=== PATIENT | female | born 1970 | race Caucasian/White ===

== ENCOUNTER → 2020-05-31 | Outpatient (CLI) | payer BC ==
--- NOTE | 2020-05-31 13:41 | US ---
EXAMINATION TYPE: US pelvis complete trans vag DATE OF EXAM: 05/31/2020 COMPARISON: US 01/17/12; CT 12/18/11 CLINICAL HISTORY: R10.9 Abdominal Pain, Unspecified, R31.9 Hematuria. Intermittent pelvic and back pa in x 3 mths; Hx of tubal ligation TECHNIQUE: Transvaginal (TV) and Transabdominal (TA) . Transabdominal sonographic images of the pel vis were acquired. Transvaginal sonographic images were medically necessary to better assess the fol lowing anatomy: Ovaries Date of LMP: 05/24/20 EXAM MEASUREMENTS: Uterus: 7.8 x 4.1 x 4.5 cm Endometrial Stripe: 0.8 cm Right Ovary: 2.3 x 1.6 x 3.1 cm Left Ovary: 2.8 x 2.0 x 1.7 cm 1. Uterus: Fibroid within the posterior body measuring 1.4 x 1.4 x 1.4 cm . 2. Endometrium: wnl 3. Right Ovary: wnl 4. Left Ovary: wnl 5. Bilateral Adnexa: wnl 6. Posterior cul-de-sac: wnl IMPRESSION: 1.4 cm fibroid within the posterior uterine body. 1. No evidence of ovarian or adnexal mass. 2. No free fluid.
--- NOTE | 2020-05-31 14:00 | US ---
EXAMINATION TYPE: US abdomen complete DATE OF EXAM: 05/31/2020 COMPARISON: US 10/14/12; CT abdomen pelvis 12/18/11 CLINICAL HISTORY: R10.9 Abdominal Pain, Unspecified, R31.9 Hematuria. Increased urinary frequency; in termittent pelvic and back pain x 3 mths EXAM MEASUREMENTS: Liver Length: 18.1 cm, not significantly changed from 2012 CT comparison Gallbladder Wall: 0.2 cm CBD: 0.5 cm Spleen: 8.0 cm Right Kidney: 9.6 x 4.2 x 5.1 cm Left Kidney: 9.6 x 3.8 x 4.1 cm Pancreas: Normal where visualized Liver: Normal echotexture Gallbladder: Normal Low Pressure Firer reports negative sonographic Pedroza sign CBD: Normal Spleen: Normal Right Kidney: Normal Left Kidney: Normal Upper IVC: Normal Abd Aorta: Nonaneurysmal IMPRESSION: No hydronephrosis. No acute findings.
== END | disposition home or self-care (01) ==
LOC: RADUSWWP 06:59
PROVIDERS: ATTEND Family Medicine
DX: D25.9 Leiomyoma of uterus, unspecified (principal); R31.9 Hematuria, unspecified; R10.31 Right lower quadrant pain
CPT/HCPCS: 76700; 76830; 76856

== ENCOUNTER 2020-07-13 09:56 | Day surgery (SDC) | payer BC ==
[2020-07-11 14:30] VITALS: BMI 18.9
[~2020-07-13 09:56] MED LIST: LACTATED RINGERS 1,000 ML IV SCH
[2020-07-13 10:33] VITALS: TEMP 97.7
[2020-07-13] MEDS ORDERED: LIDOCAINE 1% (10MG/ML) FOR IV START INTRADERMA ONE (10:37)
[2020-07-13] MEDS ORDERED: LIDOCAINE 1% INJ 10MG/ML (20 ML MDV) ONE (11:05)
[2020-07-13] MEDS ORDERED: PROPOFOL 10 MG/ML 20 ML VIAL IV ONE (11:05)
--- NOTE | 2020-07-13 11:49 | P.PCN ---
Date of Procedure: 07/13/20 Procedure(s) Performed: BRIEF HISTORY: Patient is a 50-year-old pleasant white female scheduled for an elective colonoscopy as a part of screening for colorectal neoplasia. PROCEDURE PERFORMED: Colonoscopy with snare polypectomy, argon plasma coagulation, Endo Clip placement. PREOPERATIVE DIAGNOSIS: Screening for colon cancer. IV sedation per Anesthesia. PROCEDURE: After informed consent was obtained, the patient, was brought into the endoscopy unit. IV sedation was administered by Anesthesia under continuous monitoring. Digital rectal examination was normal. Initially the Olympus CF-160 flexible video colonoscope was then inserted in the rectum, gradually advanced into the cecum without any difficulty. Careful examination was performed as the scope was gradually being withdrawn. Ileocecal valve and the appendiceal orifice were visualized and appeared normal. Prep was excellent. On the ileocecal valve there was a 3 cm broad-based polyp/flat polyp that was removed in a piecemeal fashion and an almost 80% the polyp was removed. Following this I performed argon plasma coagulation. 2 endoclips were placed to prevent post- polypectomy bleed. Mucosa of the cecum, ascending colon, transverse colon, descending colon, sigmoid colon, and rectum appeared normal. In the rectum there were 2 polyps measuring 5 mm in size both of which were removed by snare polypectomy. Retroflexion was performed in the rectum and no lesions were seen. The patient tolerated the procedure well. IMPRESSION: 3 cm flat/broad-based polyp on the ileocecal status post piecemeal snare polypectomy followed by argon plasma coagulation and Endo Clip placement as described above 5 mm 2 distal rectal polyp status post polypectomy RECOMMENDATIONS: Findings of this examination were discussed with the patient as well as a family. She was advised to follow with the biopsy results. In the office in one to 2 weeks. Reason the biopsy results will plan a repeat colonoscopy in 3-6 months
[2020-07-13] MEDS ORDERED: SODIUM CHLORIDE 0.9% 1,000 ML IV ONE (11:50)
[2020-07-13 12:01] VITALS: BP 125/69
[2020-07-13 12:27] VITALS: PULSE 80; RESP 20
== END 2020-07-13 12:50 | disposition home or self-care (01) ==
LOC: ORWHC2ENDO 09:56
PROVIDERS: ATTEND Internal Medicine Gastroenterology
DX: Z12.11 Encounter for screening for malignant neoplasm of colon (principal); D12.0 Benign neoplasm of cecum; D12.8 Benign neoplasm of rectum; Z79.899 Other long term (current) drug therapy; Z88.0 Allergy status to penicillin; Z88.2 Allergy status to sulfonamides; F17.210 Nicotine dependence, cigarettes, uncomplicated; Z98.51 Tubal ligation status; Z90.09 Acquired absence of other part of head and neck
CPT/HCPCS: 81025; 88305; 45385; 45388; J2001; J2704; 44401

== ENCOUNTER → 2020-09-12 | Outpatient (CLI) | payer BC ==
--- NOTE | 2020-09-15 13:19 | MM ---
Reason for exam: screening (asymptomatic). Last mammogram was performed 8 years and 8 months ago. History: Patient is postmenopausal. Retro-pectoral saline implants in both breasts, 2006. Benign excisional biopsy of the left breast, January 01, 2002. Physical Findings: A clinical breast exam by your physician is recommended on an annual basis and results should be correlated with mammographic findings. MG Screening Mammo Implant/CAD Bilateral CC, MLO, and ID view(s) were taken. Prior study comparison: January 17, 2012, CAD bilateral diagnostic mammogram. November 20, 2001, bilateral diagnostic mammogram. The breast tissue is extremely dense which could obscure a lesion on mammography. Bilateral breast prothesis. No significant changes when compared with prior studies. ASSESSMENT: Benign, BI-RAD 2 RECOMMENDATION: Routine screening mammogram of both breasts in 1 year.
== END | disposition home or self-care (01) ==
LOC: RADMAMWWP 16:10
PROVIDERS: ATTEND Family Medicine
DX: Z12.31 Encounter for screening mammogram for malignant neoplasm of breast (principal)
CPT/HCPCS: 77067

== ENCOUNTER 2020-10-13 09:53 | Day surgery (SDC) | payer BC ==
[2020-10-11 14:01] VITALS: BMI 18.6
[2020-10-13 10:36] VITALS: TEMP 97.6
[2020-10-13] MEDS ORDERED: LIDOCAINE 1% (10MG/ML) FOR IV START INTRADERMA ONE (10:43)
[2020-10-13] MEDS: LACTATED RINGERS 1,000 ML IV SCH ×2 (10:46→11:33)
[2020-10-13] MEDS ORDERED: LIDOCAINE 1% INJ 10MG/ML (20 ML MDV) ONE (11:34)
[2020-10-13] MEDS ORDERED: PROPOFOL 10 MG/ML 20 ML VIAL IV ONE (11:34)
--- NOTE | 2020-10-13 12:03 | P.PCN ---
Date of Procedure: 10/13/20 Procedure(s) Performed: BRIEF HISTORY: Patient is a 50-year-old pleasant female scheduled for an elective colonoscopy as a part of surveillance of large colon polyp noted on a colonoscopy in July 2020. She had a 3 cm broad-based polyp on the ileocecal valve that was removed with snare polypectomy followed by argon plasma coagulation. PROCEDURE PERFORMED: Colonoscopy with snare polypectomy and argon plasma coagulation. PREOPERATIVE DIAGNOSIS: Follow-up large polyp on the ileocecal valve on c olonoscopy July 2020. IV sedation per Anesthesia. PROCEDURE: After informed consent was obtained, the patient, was brought into the endoscopy unit. IV sedation was administered by Anesthesia under continuous monitoring. Digital rectal examination was normal. Initially the Olympus CF-160 flexible video colonoscope was then inserted in the rectum, gradually advanced into the cecum without any difficulty. Careful examination was performed as the scope was gradually being withdrawn. Ileocecal valve and the appendiceal orifice were visualized and appeared normal. Prep was excellent. and the ileocecal valve there was a residual 2 cm flat polyp that was removed in a piecemeal fashion followed by argon plasma coagulation. Mucosa of the cecum, ascending colon Appeared normal. In the transverse colon there was a 5 limited polyp that was removed by snare polypectomy. Rest of the, transverse colon, descending colon, sigmoid colon, and rectum appeared normal. Retroflexion was performed in the rectum and no lesions were seen. The patient tolerated the procedure well. IMPRESSION: 2 cm flat sessile polyp on the ileocecal valve status post snare polypectomy followed by argon plasma coagulation 5 mm transverse colon polyp status post polypectomy RECOMMENDATIONS: Findings of this examination were discussed with the patient as well as a family.. she was advised to follow with the biopsy results and have a repeat colonoscopy in one year
[2020-10-13 13:35] VITALS: BP 103/76; PULSE 60; RESP 20
== END 2020-10-13 13:40 | disposition home or self-care (01) ==
LOC: ORWHC2ENDO 09:53
PROVIDERS: ATTEND Internal Medicine Gastroenterology
DX: Z12.11 Encounter for screening for malignant neoplasm of colon (principal); D12.0 Benign neoplasm of cecum; D12.3 Benign neoplasm of transverse colon; F17.210 Nicotine dependence, cigarettes, uncomplicated; Z88.0 Allergy status to penicillin; Z88.8 Allergy status to other drugs, medicaments and biological substances
CPT/HCPCS: 88305; 45385; 45388; J2001; J2704

== ENCOUNTER → 2021-06-04 | Outpatient (CLI) | payer BC ==
[2021-06-04 19:18] LABS: Basophils # (A) 0.06 X 10*3/uL (0.00-0.10); Basophils % (A) 0.5 %; Eosinophils # (A) 0.24 X 10*3/uL (0.04-0.35); Eosinophils % (A) 1.9 %; HCT 48.2 % (37.2-46.3); HGB 15.4 g/dL (12.0-15.0); Lymphocytes # (A) 2.36 X 10*3/uL (0.90-5.00); Lymphocytes % (A) 18.9 %; MCH 29.7 pg (27.0-32.0); MCV 92.9 fL (80.0-97.0); Mean Platelet Volume 10.9 fL (9.5-12.2); Monocytes # (A) 0.55 X 10*3/uL (0.20-1.00); Monocytes % (A) 4.4 %; Neutrophils # (A) 9.23 X 10*3/uL (1.80-7.70); Neutrophils % (A) 73.9 %; Platelet Count 348 X 10*3/uL (140-440); RBC 5.19 X 10*6/uL (4.10-5.20); RDW 13.2 % (11.5-14.5); WBC 12.49 X 10*3/uL (4.50-10.00)
[2021-06-04 21:15] LABS: % Iron Saturation 10.6 (12.00-45.00); African American GFR (CKD) 123.7 (60.0-200.0); Albumin 5.5 g/dL (3.8-4.9); Albumin/Globulin Ratio 1.84 (1.60-3.17); Anion Gap 17.7 mmol/L (4.00-12.00); BUN/Creat Ratio 13.41 Ratio (12.00-20.00); Blood Urea Nitrogen 7.8 mg/dL (9.0-27.0); Calcium 11.1 mg/dL (8.7-10.3); Carbon Dioxide 23.3 mmol/L (21.6-31.8); Chol/HDL Ratio 2.63 Ratio; Ferritin 57.9 ng/mL (10.0-291.0); HDL Cholesterol 87.3 mg/dL (40.00-60.00); LDL Cholesterol,Calculated 124.8 mg/dL (0.0-131.0); Non-African American GFR(CKD) 106.7 (60.0-200.0); Potassium 4.1 mmol/L (3.5-5.5); Total Bilirubin 0.5 mg/dL (0.30-1.20); Total Protein 8.4 g/dL (6.2-8.2); Triglycerides 89.5 mg/dL (0.00-149.00); VLDL Calculation 17.9 mg/dL (5.00-40.00)
== END | disposition home or self-care (01) ==
LOC: LABWHC1 12:51
PROVIDERS: ATTEND Nurse Practitioner Family
DX: Z13.220 Encounter for screening for lipoid disorders (principal); Z13.0 Encounter for screening for diseases of the blood and blood-forming organs and certain disorders involving the immune mechanism; Z13.228 Encounter for screening for other metabolic disorders; E55.9 Vitamin D deficiency, unspecified
CPT/HCPCS: 36415; 80053; 80061; 82306; 82728; 83540; 83550; 84443; 85025

== ENCOUNTER 2022-03-20 14:52 | Inpatient (IN) | payer BC ==
[2022-03-20] MEDS ORDERED: SODIUM CHLORIDE 0.9% 1,000 ML IV STA (19:13)
[2022-03-20] MEDS ORDERED: ONDANSETRON 4 MG/2 ML VIAL IVP STA (19:13)
[2022-03-20] MEDS ORDERED: KETOROLAC 15 MG/ML 1 ML VIAL IVP STA (19:13)
[2022-03-20 19:39] LABS: Basophils # (A) 0.1 k/uL (0-0.2); Basophils % (A) 1 %; Eosinophils # (A) 0.4 k/uL (0-0.7); Eosinophils % (A) 5 %; HGB 13.4 gm/dL (11.4-16.0); Lymphocytes # (A) 2.3 k/uL (1.0-4.8); Lymphocytes % (A) 31 %; MCH 30.2 pg (25.0-35.0); MCHC 32.6 g/dL (31.0-37.0); MCV 92.8 fL (80.0-100.0); Monocytes # (A) 0.3 k/uL (0-1.0); Monocytes % (A) 4 %; Neutrophils # (A) 4.4 k/uL (1.3-7.7); Neutrophils % (A) 58 %; Platelet Count 248 k/uL (150-450); RBC 4.42 m/uL (3.80-5.40); RDW 13.4 % (11.5-15.5); WBC 7.7 k/uL (3.8-10.6)
--- NOTE | 2022-03-20 19:41 | ED ---
Abdominal Pain HPI - General Chief Complaint: Abdominal Pain Stated Complaint: abd pain Time Seen by Provider: 03/20/22 19:06 Source: patient, RN notes reviewed Mode of arrival: ambulatory Limitations: no limitations - History of Present Illness Initial Comments: This is a 51-year-old female who presents to the emergency department with epigastric and mid abdominal pain. Patient describes this as waxing and waning for the last 2 days. States that this radiates to the back as well. Denies any associated shortness of breath. She has not noticed any correlation with diet. She has had a decreased appetite and some nausea but no vomiting. Her last bowel movement was 3 days ago and she is passing minimal gas. Denies any fevers, chills, sore throat, cough, dyspnea, chest pain, palpitations, vomiting, diarrhea, or headaches. MD Complaint: abdominal pain Onset/Timin -: days(s) Location: periumbilical, epigastric Consistency: colicky Associated Symptoms: nausea - Related Data Home Medications Medication Instructions Recorded Confirmed Mv-Min/Vit C/Glut/Lysine/Hc124 4 tab PO DAILY 10/11/20 03/20/22 [Airborne Tablet Chewable] Loratadine [Claritin] 10 mg PO DAILY PRN 03/20/22 03/20/22 Allergies Allergy/AdvReac Type Severity Reaction Status Date / Time Iodinated Contrast Media Allergy Rash/Hives Verified 03/20/22 22:56 Penicillins Allergy Rash/Hives Verified 03/20/22 22:56 sulfamethoxazole Allergy Rash/Hives Verified 03/20/22 22:56 [From ] trimethoprim [From ] Allergy Rash/Hives Verified 03/20/22 22:56 Review of Systems ROS Statement: Those systems with pertinent positive or pertinent negative responses have been documented in the HPI. ROS Other: All systems not noted in ROS Statement are negative. Past Medical History Past Medical History: No Reported History Additional Past Medical History / Comment(s): CERVICAL CANCER History of Any Multi-Drug Resistant Organisms: None Reported Past Surgical History: Breast Surgery, Tonsillectomy, Tubal Ligation Additional Past Surgical History / Comment(s): BREAST IMPLANTS. COLD KNIFE CONIZATION FOR CERVICAL CANCER Past Anesthesia/Blood Transfusion Reactions: No Reported Reaction Past Psychological History: No Psychological Hx Reported Smoking Status: Current every day smoker Past Alcohol Use History: None Reported Past Drug Use History: None Reported - Past Family History Mother Family Medical History: No Reported History General Exam Limitations: no limitations General appearance: alert, in distress Head exam: Present: atraumatic, normocephalic, normal inspection Respiratory exam: Present: normal lung sounds bilaterally. Absent: respiratory distress, wheezes, rales, rhonchi, stridor Cardiovascular Exam: Present: regular rate, normal rhythm, normal heart sounds. Absent: systolic murmur, diastolic murmur, rubs, gallop, clicks GI/Abdominal exam: Present: soft, tenderness (RUQ and LUQ), hypoactive bowel sounds. Absent: distended, guarding, rebound, rigid Neurological exam: Present: alert, oriented X3, CN II-XII intact Psychiatric exam: Present: normal affect, normal mood Skin exam: Present: warm, dry, intact, normal color. Absent: rash Course Vital Signs 03/20/22 03/20/22 15:03 21:40 Temperature 98.7 F Pulse Rate 85 61 Respiratory 20 18 Rate Blood Pressure 145/79 168/93 O2 Sat by Pulse 99 98 Oximetry Medical Decision Making - Medical Decision Making This is a 51-year-old female who presents to the emergency department for epig astric and mid abdominal pain. Lab work was nonactionable. Ultrasound of the gallbladder was obtained, this also revealed no irregularities. Risks and benefits of obtaining a computed tomography scan for further evaluation were discussed with the patient. At this time, based on her labs there are no signs of an acute process. However, the patient has a significant amount of pain and she requests further evaluation of her ongoing problems. She has never had a computed tomography scan with contrast in the past, but is understanding that this will give a better picture of any possible infection or obstruction that could be going on. Following the computed tomography scan patient did have some nausea, proceeded by some swelling in the cheeks. She was hemodynamically stable with no evidence of respiratory distress. She was immediately given Solu-Medrol, Benadryl, and Pepcid. I added IV contrast to her allergy list in the event she needs it in the future. Following medication administration, the patient noted substantial improvement in her symptoms. Computed tomography scan of the abdomen and pelvis reveals small bowel gas suggesting delayed transit and/or ileus. The ileus is consistent with the patient's presentation of abdominal pain, constipation, and difficulty passing gas. Will admit the patient for IV fluids and bowel rest for management of ileus. This case was discussed in detail with the attending ED physician. Presentation, findings, and treatment plan discussed in detail as well. - Lab Data Result diagrams: 03/20/22 19:21 03/20/22 19:21 Lab Results 03/20/22 03/20/22 03/20/22 Range/Units 19:21 19:21 19:21 WBC 7.7 (3.8-10.6) k/uL RBC 4.42 (3.80-5.40) m/uL Hgb 13.4 (11.4-16.0) gm/dL Hct 41.0 (34.0-46.0) % MCV 92.8 (80.0-100.0) fL MCH 30.2 (25.0-35.0) pg MCHC 32.6 (31.0-37.0) g/dL RDW 13.4 (11.5-15.5) % Plt Count 248 (150-450) k/uL MPV 8.0 Neutrophils % 58 % Lymphocytes % 31 % Monocytes % 4 % Eosinophils % 5 % Basophils % 1 % Neutrophils # 4.4 (1.3-7.7) k/uL Lymphocytes # 2.3 (1.0-4.8) k/uL Monocytes # 0.3 (0-1.0) k/uL Eosinophils # 0.4 (0-0.7) k/uL Basophils # 0.1 (0-0.2) k/uL Sodium 139 (137-145) mmol/L Potassium 3.8 (3.5-5.1) mmol/L Chloride 104 (98-107) mmol/L Carbon Dioxide 25 (22-30) mmol/L Anion Gap 10 mmol/L BUN 10 (7-17) mg/dL Creatinine 0.55 (0.52-1.04) mg/dL Est GFR (CKD-EPI)AfAm >90 (>60 ml/min/1.73 sqM) Est GFR (CKD-EPI)NonAf >90 (>60 ml/min/1.73 sqM) Glucose 87 (74-99) mg/dL Calcium 10.1 (8.4-10.2) mg/dL Total Bilirubin 0.4 (0.2-1.3) mg/dL AST 26 (14-36) U/L ALT 17 (4-34) U/L Alkaline Phosphatase 70 (38-126) U/L Troponin I (0.000-0.034) ng/mL Total Protein 6.7 (6.3-8.2) g/dL Albumin 4.4 (3.5-5.0) g/dL Amylase 66 (30-110) U/L Lipase 80 (23-300) U/L Urine Color Yellow Urine Appearance Clear (Clear) Urine pH 6.0 (5.0-8.0) Ur Specific [place] 1.016 (1.001-1.035) Urine Protein Negative (Negative) Urine Glucose (UA) Negative (Negative) Urine Ketones Negative (Negative) Urine Blood Negative (Negative) Urine Nitrite Negative (Negative) Urine Bilirubin Negative (Negative) Urine Urobilinogen <2.0 (<2.0) mg/dL Ur Leukocyte Esterase Negative (Negative) 03/20/22 Range/Units 20:29 WBC (3.8-10.6) k/uL RBC (3.80-5.40) m/uL Hgb (11.4-16.0) gm/dL Hct (34.0-46.0) % MCV (80.0-100.0) fL MCH (25.0-35.0) pg MCHC (31.0-37.0) g/dL RDW (11.5-15.5) % Plt Count (150-450) k/uL MPV Neutrophils % % Lymphocytes % % Monocytes % % Eosinophils % % Basophils % % Neutrophils # (1.3-7.7) k/uL Lymphocytes # (1.0-4.8) k/uL Monocytes # (0-1.0) k/uL Eosinophils # (0-0.7) k/uL Basophils # (0-0.2) k/uL Sodium (137-145) mmol/L Potassium (3.5-5.1) mmol/L Chloride (98-107) mmol/L Carbon Dioxide (22-30) mmol/L Anion Gap mmol/L BUN (7-17) mg/dL Creatinine (0.52-1.04) mg/dL Est GFR (CKD-EPI)AfAm (>60 ml/min/1.73 sqM) Est GFR (CKD-EPI)NonAf (>60 ml/min/1.73 sqM) Glucose (74-99) mg/dL Calcium (8.4-10.2) mg/dL Total Bilirubin (0.2-1.3) mg/dL AST (14-36) U/L ALT (4-34) U/L Alkaline Phosphatase (38-126) U/L Troponin I <0.012 (0.000-0.034) ng/mL Total Protein (6.3-8.2) g/dL Albumin (3.5-5.0) g/dL Amylase (30-110) U/L Lipase (23-300) U/L Urine Color Urine Appearance (Clear) Urine pH (5.0-8.0) Ur Specific [place] (1.001-1.035) Urine Protein (Negative) Urine Glucose (UA) (Negative) Urine Ketones (Negative) Urine Blood (Negative) Urine Nitrite (Negative) Urine Bilirubin (Negative) Urine Urobilinogen (<2.0) mg/dL Ur Leukocyte Esterase (Negative) - EKG Data EKG Comments: Sinus bradycardia. Borderline right axis deviation. Ventricular rate 57 bpm, AL interval 135 ms, QRS duration 89 ms, QTC 388 ms. - Radiology Data Radiology results: report reviewed, image reviewed Disposition Clinical Impression: Ileus, unspecified Disposition: ADMITTED IP TO THIS HOSP
[2022-03-20 19:52] LABS: ALT 17 U/L (4-34); AST 26 U/L (14-36); African American GFR (CKD) >90 (>60 ml/min/1.73 sqM); Albumin 4.4 g/dL (3.5-5.0); Alkaline Phosphatase 70 U/L (38-126); Amylase 66 U/L (30-110); Anion Gap 10 mmol/L; Blood Urea Nitrogen 10 mg/dL (7-17); Calcium 10.1 mg/dL (8.4-10.2); Carbon Dioxide 25 mmol/L (22-30); Chloride 104 mmol/L (98-107); Glucose 87 mg/dL (74-99); Lipase 80 U/L (23-300); Non-African American GFR(CKD) >90 (>60 ml/min/1.73 sqM); Potassium 3.8 mmol/L (3.5-5.1); Sodium 139 mmol/L (137-145); Total Bilirubin 0.4 mg/dL (0.2-1.3); Total Protein 6.7 g/dL (6.3-8.2)
--- NOTE | 2022-03-20 20:14 | US ---
EXAMINATION TYPE: US gallbladder DATE OF EXAM: 03/20/2022 COMPARISON: 05/31/20 CLINICAL HISTORY: epigastric pain. epigastric pain x 3 days. TECHNIQUE: Multiple sonographic images of the right upper quadrant are obtained. FINDINGS: EXAM MEASUREMENTS: Liver Length: 15.7 cm Gallbladder Wall: 0.15 cm CBD: 0.36 cm Right Kidney: 9.5 x 5.3 x 3.7 cm Pancreas: wnl Liver: wnl Gallbladder: wnl Evidence for sonographic Pedroza's sign: No CBD: wnl Right Kidney: wnl IMPRESSION: No evidence for acute process.
[2022-03-20 20:51] LABS: Appearance,Urine Clear (Clear); Bilirubin,Urine Negative (Negative); Blood,Urine Negative (Negative); Color,Urine Yellow; Glucose,Urine (UA) Negative (Negative); Ketones,Urine Negative (Negative); Leukocyte Esterase,Urine Negative (Negative); Nitrite,Urine Negative (Negative); Protein,Urine Negative (Negative); Specific Gravity,Urine 1.016 (1.001-1.035); Urobilinogen,Urine <2.0 mg/dL (<2.0)
[2022-03-20] MEDS ORDERED: diphenhydrAMINE 50 MG/ML 1 ML VIAL IVP STA (21:15)
[2022-03-20] MEDS ORDERED: methylPREDNISolone SOD SUCCIN 250 MG in SODIUM CHLORIDE 0.9% 100 ML IVPB STA (21:15)
[2022-03-20] MEDS ORDERED: FAMOTIDINE 20 MG/2 ML VIAL IV STA (21:15)
--- NOTE | 2022-03-20 21:38 | CT ---
EXAMINATION TYPE: CT abdomen pelvis w con CT DLP: 458.1 mGycm, Automated exposure control for dose reduction was used. DATE OF EXAM: 03/20/2022 9:25 PM COMPARISON: None CLINICAL INDICATION:Female, 51 years old with history of Epigastric pain; TECHNIQUE: Axial CT of the abdomen and pelvis. Sagittal and coronal reformats were created on a [employer] workstation. Contrast used:80 mL of Isovue 300 with IV Contrast, Oral contrast used: without Oral Contrast FINDINGS: LOWER CHEST: Unremarkable ABDOMEN LIVER: Unremarkable GALLBLADDER AND BILE DUCTS: Unremarkable. PANCREAS: Unremarkable. SPLEEN: Unremarkable. ADRENAL GLANDS: Unremarkable. KIDNEYS AND URETERS: No evidence of hydronephrosis or renal calculus. The ureters are unremarkable. PELVIS BLADDER: Unremarkable REPRODUCTIVE: Unremarkable. ABDOMEN & PELVIS STOMACH AND BOWEL: There is gas seen throughout the small bowel. No evidence of bowel obstruction. PERITONEUM: No evidence of pneumoperitoneum or free fluid. VASCULATURE: Mild atherosclerotic calcifications are present throughout the abdominal aorta and its b ranches. No evidence of aortic aneurysm. MUSCULOSKELETAL: No acute osseous abnormalities LYMPH NODES: No gross evidence for lymphadenopathy. SOFT TISSUE/ABDOMINAL WALL: Unremarkable IMPRESSION: Small bowel gas suggests underlying delayed transit and/or ileus. No other finding in the abdomen or pelvis to correlate with patient's epigastric pain
[2022-03-20] MEDS ORDERED: ONDANSETRON 4 MG/2 ML VIAL IVP PRN (23:07)
[2022-03-20] MEDS ORDERED: KETOROLAC 15 MG/ML 1 ML VIAL IVP PRN (23:07)
[2022-03-20] MEDS ORDERED: NALOXONE 0.4 MG/ML 1 ML VIAL IV PRN (23:07)
[2022-03-21] MEDS: SODIUM CHLORIDE 0.9% 1,000 ML IV SCH ×2 (00:41→14:19)
--- NOTE | 2022-03-21 04:56 | P.HPIM ---
History of Present Illness H&P Date: 03/20/22 Chief Complaint: abdominal pain 51-year-old female with no significant past medical history She comes in with 3 day history of no bowel movement in 2 day history of abdomin al pain she describes pain mainly in the upper part of the abdomen colicky in nature can be as bad as 8 out of 10 in severity and nonradiating not related to food or activity. Initially she thought she is constipated which she is always constipated. But then pain was not improving she denies any associated nausea vomiting but she was worried this time due to the colicky nature of the pain. Denies any similar episodes in the past denies any GI bleeding denies any melena denies any weight changes. Denies any trauma to the abdomen. Denies any heavy alcohol consumption or illicit drugs. Denies any history of ulcers in the stomach. In the ED blood work was unremarkable goal blood ultrasound was negative CT of the abdomen suggested ileus. Review of Systems Pertinent positives as noted in HPI. All other systems were reviewed and are negative Past Medical History Past Medical History: No Reported History Additional Past Medical History / Comment(s): CERVICAL CANCER History of Any Multi-Drug Resistant Organisms: None Reported Past Surgical History: Breast Surgery, Tonsillectomy, Tubal Ligation Additional Past Surgical History / Comment(s): BREAST IMPLANTS. COLD KNIFE CONIZATION FOR CERVICAL CANCER Past Anesthesia/Blood Transfusion Reactions: No Reported Reaction Past Psychological History: No Psychological Hx Reported Smoking Status: Current every day smoker Past Alcohol Use History: None Reported Past Drug Use History: None Reported - Past Family History Mother Additional Family Medical History / Comment(s): hypertension and cancer runs in the family Medications and Allergies Home Medications Medication Instructions Recorded Confirmed Type Mv-Min/Vit C/Glut/Lysine/Hc124 4 tab PO DAILY 10/11/20 03/20/22 History [Airborne Tablet Chewable] Loratadine [Claritin] 10 mg PO DAILY PRN 03/20/22 03/20/22 History Allergies Allergy/AdvReac Type Severity Reaction Status Date / Time Iodinated Contrast Media Allergy Rash/Hives Verified 03/20/22 22:56 Penicillins Allergy Rash/Hives Verified 03/20/22 22:56 sulfamethoxazole Allergy Rash/Hives Verified 03/20/22 22:56 [From ] trimethoprim [From ] Allergy Rash/Hives Verified 03/20/22 22:56 Physical Exam Vitals: Vital Signs Temp Pulse Resp BP Pulse Ox 03/20/22 21:40 61 18 168/93 98 03/20/22 15:03 98.7 F 85 20 145/79 99 Intake and Output 03/20/22 03/20/22 03/21/22 14:59 22:59 06:59 Other: Weight 45.813 kg Constitutional: No acute distress, conversant, pleasant Eyes: Anicteric sclerae, moist conjunctiva, Pupils equal round reactive to light ENMT: NC/AT Oropharynx clear, no erythema, or exudates Neck: Supple, FROM, no masses, or JVD No carotid bruits No thyromegaly Lungs: Clear to auscultation Clear to percussion Normal respiratory effort, no accessory muscle use Cardiovascular: Heart regular in rate and rhythm, No murmurs, gallops, or rubs No peripheral edema Abdominal: Soft discomfort to deep palpation of the epigastric regionr, no guarding, rebound or rigidity Abdomen moving with respiration Normoactive bowel sounds No hepatomegaly, No splenomegaly No palpable mass No abdominal wall hernia noted Skin: Normal temperature, tone, texture, turgor No induration No subcutaneous nodules No rash, lesions No ulcers Extremities: No digital cyanosis No clubbing Pedal pulses intact and symmetrical Radial pulses intact and symmetrical No calf tenderness Psychiatric: Alert and oriented to person, place and time Appropriate affect fair judgement Neuro Muscles Strength 5/5 in all 4 extremities Sensation to light touch grossly present throughout Cranial nerves II-XII grossly intact No focal sensory deficits Lymphatics: no palpable cervical or supraclavicular , or inguinal lymph nodes Results CBC & Chem 7: 03/20/22 19:21 03/20/22 19:21 Assessment and Plan Assessment: ileus IV fluid hydration with normal saline Full liquid dietAs tolerated Electrolytes unremarkable CT of the abdomen reviewed showed ileus Gallbladder by ultrasound no acute pathology encourage ambulation Protonix daily by mouth history of polyps on colonoscopiesContinue with outpatient follow-up with GI DVT prophylaxis heparin subcu 3 times a day full code
[2022-03-21] MEDS: HEPARIN SODIUM,PORCINE/PF 5,000 UNIT/0.5 ML SYRINGE SQ SCH ×2 (08:04→15:34)
[2022-03-21] MEDS: PANTOPRAZOLE 40 MG TABLET PO SCH (08:04)
[2022-03-21] MEDS: METOCLOPRAMIDE 5 MG/ML 2 ML VIAL IVP SCH ×2 (14:19→18:24)
--- NOTE | 2022-03-21 14:59 | P.PN ---
Subjective Progress Note Date: 03/21/22 Patient was seen and examined. No acute events overnight. Patient continues reported generalized abdominal pain, crampy in nature, 7 out of 10 in severity. No further episodes of nausea vomiting. Has not had a bowel movement. Not passing gas. Requesting nicotine patch. General: [non toxic], [no distress], [appears at stated age] Derm: [warm], [dry] Head: [atraumatic], [normocephalic], [symmetric] Eyes: [EOMI], [no lid lag], [anicteric sclera] Mouth: [no lip lesion], [mucus membranes moist] Cardiovascular: [S1S2 reg], [no murmur] Lungs: [CTA bilateral], [no rhonchi, no rales] , [no accessory muscle use] Abdominal: [soft], [tenderness to palpation in all 4 quadrants without rebound], [decreased bowel sounds], [no appreciable organomegaly] Ext: [no gross muscle atrophy], [no edema], [no contractures] Neuro: [no focal neuro deficits] Psych: [Alert], [oriented], [appropriate affect] #Abdominal pain #Ileus #Smoker #Seasonal ALLERGIES As seen on CTAP. Surgery consulted. Continue clear liquid diet. Continue normal saline at 75 mL per hour. Continue Protonix 40 mg by mouth daily. Zo jazmin as needed for nausea vomiting. Pain control with Toradol as needed. Continue Reglan 10 mg IV every 6 hours. Start nicotine patch 21 mg transdermal. Restart Claritin. Heparin for DVT prophylaxis. Patient like to be FULL CODE. She is pending clinical improvement. Objective - Vital Signs Vital signs: Vital Signs Temp 97.5 F L 03/21/22 05:17 Pulse 64 03/21/22 13:00 Resp 18 03/21/22 13:00 BP 114/72 03/21/22 13:00 Pulse Ox 99 03/21/22 13:00 FiO2 Intake & Output 03/20/22 03/21/22 03/21/22 18:59 06:59 18:59 Weight 45.813 kg 45.813 kg - Labs CBC & Chem 7: 03/20/22 19:21 03/20/22 19:21
--- NOTE | 2022-03-21 15:38 | P.GSCN ---
History of Present Illness Consult date: 03/21/22 History of present illness: CHIEF COMPLAINT: Abdominal pain HISTORY OF PRESENT ILLNESS: This is a 51-year-old female presented to hospital with complaints of epigastric and mid abdominal pain for the last 4 days. She had been having nausea and one episode of vomiting. She reports she had a small bowel movement 2 days ago and has been having flatus. Her computed tomography scan had shown evidence of an ileus. She is currently on a clear liquid diet. She did have some abdominal discomfort after taking in the clear liquids. Her last colonoscopy she reports about a year ago did reveal colon polyps. She doesn't history of tubal ligation and nicotine dependence. Patient seen and examined with Dr. dickinson PAST MEDICAL HISTORY: See list. PAST SURGICAL HISTORY: See list. MEDICATIONS: See list. ALLERGIES: See list. SOCIAL HISTORY: No illicit drug use. REVIEW OF SYSTEMS: CONSTITUTIONAL: Denies fever or chills. HEENT: Denies blurred vision, vision changes, or eye pain. Denies hemoptysis CARDIOVASCULAR: Denies chest pain or pressure. RESPIRATORY: No shortness of breath. GASTROINTESTINAL: See HPI for pertinent findings HEMATOLOGIC: Denies bleeding disorders. GENITOURINARY: Denies any blood in urine or increased urinary frequency. SKIN: Denies pruitis. Denies rash. PHYSICAL EXAM: VITAL SIGNS: Reviewed GENERAL: Well-developed in no acute distress. HEENT: No sclera icterus. Extraocular movements grossly intact. Moist buccal mucosa. Head is atraumatic, normocephalic. No nasal drainage. ABDOMEN: Soft. Nondistended. Tenderness with palpation of the upper abdomen NEUROLOGIC: Alert and oriented. Cranial nerves II through XII grossly intact. LABORATORY DATA: WBC 7.7 HGB 13.4 platelets 248 Sodium 139 potassium 3.8 creatinine 0.55 Urinalysis negative IMAGING: Computed tomography scan abdomen and pelvis small bowel gas just underlying delayed transit and/or ileus. No other findings in the abdomen or pelvis to correlate her patient's epigastric pain Gallbladder ultrasound no evidence for acute process ASSESSMENT: 1. Abdominal ileus PLAN: -Continue clear liquid diet -Start Reglan 10 mg IV every 6 -Encouraged patient to ambulate -Continue IV fluids -Continue supportive care Thank you for this consultation Physician [employer] note has been reviewed by physician. Signing provider agrees with the documented findings, assessment, and plan of care. Past Medical History Past Medical History: Cancer Additional Past Medical History / Comment(s): Cervical cancer with surgery, sinus allergies History of Any Multi-Drug Resistant Organisms: None Reported Past Surgical History: Breast Surgery, Tonsillectomy, Tubal Ligation Additional Past Surgical History / Comment(s): colonoscopies/tubular adenomas/ablation, bilateral breast implants, cold knife conization. Past Anesthesia/Blood Transfusion Reactions: No Reported Reaction Smoking Status: Current every day smoker - Past Family History Mother Family Medical History: Musculoskeletal Disorder Additional Family Medical History / Comment(s): MSMercedes Mother is . Father History Unknown: Yes Medications and Allergies Home Medications Medication Instructions Recorded Confirmed Type Mv-Min/Vit C/Glut/Lysine/Hc124 4 tab PO DAILY 10/11/20 03/20/22 History [Airborne Tablet Chewable] Loratadine [Claritin] 10 mg PO DAILY PRN 03/20/22 03/20/22 History Allergies Allergy/AdvReac Type Severity Reaction Status Date / Time Iodinated Contrast Media Allergy Rash/Hives Verified 03/20/22 22:56 Penicillins Allergy Rash/Hives Verified 03/20/22 22:56 sulfamethoxazole Allergy Rash/Hives Verified 03/20/22 22:56 [From ] trimethoprim [From ] Allergy Rash/Hives Verified 03/20/22 22:56 Surgical - Exam Vital Signs Temp Pulse Resp BP Pulse Ox 98.7 F 85 20 145/79 99 03/20/22 15:03 03/20/22 15:03 03/20/22 15:03 03/20/22 15:03 03/20/22 15:03 Results - Labs 03/20/22 19:21 03/20/22 19:21 Diabetes panel 03/20/22 Range/Units 19:21 Sodium 139 (137-145) mmol/L Potassium 3.8 (3.5-5.1) mmol/L Chloride 104 (98-107) mmol/L Carbon Dioxide 25 (22-30) mmol/L BUN 10 (7-17) mg/dL Creatinine 0.55 (0.52-1.04) mg/dL Glucose 87 (74-99) mg/dL Calcium 10.1 (8.4-10.2) mg/dL AST 26 (14-36) U/L ALT 17 (4-34) U/L Alkaline Phosphatase 70 (38-126) U/L Total Protein 6.7 (6.3-8.2) g/dL Albumin 4.4 (3.5-5.0) g/dL Calcium panel 03/20/22 Range/Units 19:21 Calcium 10.1 (8.4-10.2) mg/dL Albumin 4.4 (3.5-5.0) g/dL Pituitary panel 03/20/22 Range/Units 19:21 Sodium 139 (137-145) mmol/L Potassium 3.8 (3.5-5.1) mmol/L Chloride 104 (98-107) mmol/L Carbon Dioxide 25 (22-30) mmol/L BUN 10 (7-17) mg/dL Creatinine 0.55 (0.52-1.04) mg/dL Glucose 87 (74-99) mg/dL Calcium 10.1 (8.4-10.2) mg/dL Adrenal panel 03/20/22 Range/Units 19:21 Sodium 139 (137-145) mmol/L Potassium 3.8 (3.5-5.1) mmol/L Chloride 104 (98-107) mmol/L Carbon Dioxide 25 (22-30) mmol/L BUN 10 (7-17) mg/dL Creatinine 0.55 (0.52-1.04) mg/dL Glucose 87 (74-99) mg/dL Calcium 10.1 (8.4-10.2) mg/dL Total Bilirubin 0.4 (0.2-1.3) mg/dL AST 26 (14-36) U/L ALT 17 (4-34) U/L Alkaline Phosphatase 70 (38-126) U/L Total Protein 6.7 (6.3-8.2) g/dL Albumin 4.4 (3.5-5.0) g/dL
[2022-03-21] MEDS: NICOTINE 21MG/24HR PATCH TRANSDERM SCH (15:42)
[2022-03-22] MEDS: HEPARIN SODIUM,PORCINE/PF 5,000 UNIT/0.5 ML SYRINGE SQ SCH ×3 (00:44→14:40)
[2022-03-22] MEDS: METOCLOPRAMIDE 5 MG/ML 2 ML VIAL IVP SCH ×4 (00:44→17:34)
[2022-03-22] MEDS: SODIUM CHLORIDE 0.9% 1,000 ML IV SCH ×2 (04:23→15:18)
[2022-03-22] MEDS: NICOTINE 21MG/24HR PATCH TRANSDERM SCH (09:39)
[2022-03-22] MEDS: PANTOPRAZOLE 40 MG TABLET PO SCH (09:39)
--- NOTE | 2022-03-22 11:37 | P.DS ---
Providers Date of admission: 03/20/22 23:07 Expected date of discharge: 03/22/22 Attending physician: Emir Sweeney MD Consults: 03/21/22 07:34 Consult Physician Routine Consulting Provider: Chilo Garcia Consult Reason/Comments: ileus Do you want consulting provider notified?: Yes Primary care physician: Stated None Hospital Course: 51-year-old female with no significant past medical history She comes in with 3 day history of no bowel movement in 2 day history of abdominal pain she describes pain mainly in the upper part of the abdomen colicky in nature can be as bad as 8 out of 10 in severity and nonradiating not related to food or activity. Initially she thought she is constipated which she is always constipated. But then pain was not improving she denies any associated nausea vomiting but she was worried this time due to the colicky nature of the pain. Denies any similar episodes in the past denies any GI bleeding denies any melena denies any weight changes. Denies any trauma to the abdomen. Denies any heavy alcohol consumption or illicit drugs. Denies any history of ulcers in the stomach. In the ED blood work was unremarkable goal blood ultrasound was negative CT of the abdomen suggested ileus. Patient was initially started on a clear liquid diet. She was hydrated with normal saline. She was given Zofran as needed for nausea and vomiting. Her pain was controlled with Toradol. General surgery was consulted and added Reglan scheduled. Nicotine patch was added for history of smoking. Patient was seen and examined on 03/22/2022. She reported no abdominal pain during the encounter. She reported no nausea and vomiting. She reported passing gas but no bowel movement. General: [non toxic], [no distress], [appears at stated age] Derm: [warm], [dry] Head: [atraumatic], [normocephalic], [symmetric] Eyes: [EOMI], [no lid lag], [anicteric sclera] Mouth: [no lip lesion], [mucus membranes moist] Cardiovascular: [S1S2 reg], [no murmur] Lungs: [CTA bilateral], [no rhonchi, no rales] , [no accessory muscle use] Abdominal: [soft], [nontender to palpation], [decreased bowel sounds], [no appreciable organomegaly] Ext: [no gross muscle atrophy], [no edema], [no contractures] Neuro: [no focal neuro deficits] Psych: [Alert], [oriented], [appropriate affect] #Abdominal pain #Ileus #Smoker #Seasonal ALLERGIES The case was discussed with nursing. Plans to advance her diet to regular diet. Patient encouraged ambulation. Anticipate DC home this afternoon if her abdominal pain is resolved and able to tolerate a regular diet without issues. She will also need surgery clearance prior to discharge. This complex discharge took about 35 minutes to complete. Pertinent Studies: CT abdomen and pelvis Patient Condition at Discharge: Stable Plan - Discharge Summary Discharge Rx Participant: No New Discharge Prescriptions: New Pantoprazole [Protonix] 40 mg PO AC-BRKFST #30 tab Ketorolac [Toradol] 10 mg PO Q6HR #20 tab Metoclopramide HCl [Reglan] 10 mg PO DAILY #14 tablet Continue Mv-Min/Vit C/Glut/Lysine/Hc124 [Airborne Tablet Chewable] 4 tab PO DAILY Loratadine [Claritin] 10 mg PO DAILY PRN PRN Reason: Allergy Symptoms Discharge Medication List Mv-Min/Vit C/Glut/Lysine/Hc124 [Airborne Tablet Chewable] 4 tab PO DAILY 10/11/20 [History] Loratadine [Claritin] 10 mg PO DAILY PRN 03/20/22 [History] Ketorolac [Toradol] 10 mg PO Q6HR #20 tab 03/22/22 [Rx] Metoclopramide HCl [Reglan] 10 mg PO DAILY #14 tablet 03/22/22 [Rx] Pantoprazole [Protonix] 40 mg PO AC-BRKFST #30 tab 03/22/22 [Rx] Follow up Appointment(s)/Referral(s): Hernando Woodard NPC [REFERRING] - 1 Week Chilo Garcia MD [STAFF PHYSICIAN] - 1 Week Activity/Diet/Wound Care/Special Instructions: Diet: Regular Follow-up with PCP within 1-2 days of discharge. Follow-up with surgery within 1 week of discharge. Take all medications as advised. Come back to the ED for worsening abdominal pain, intractable nausea and vo miting, inability to have a bowel movement or pass gas. Discharge Disposition: HOME SELF-CARE
[2022-03-22 14:23] VITALS: BMI 18.4
--- NOTE | 2022-03-22 14:28 | P.PN ---
Subjective Progress Note Date: 03/22/22 Principal diagnosis: Abdominal ileus Patient doing better today. She is tolerating her diet. She was just eating spanish fries. Describes mild nausea earlier today. No vomiting. She did have a bowel movement on Friday. She is passing flatus at this time. Objective - Vital Signs Vital signs: Vital Signs Temp 97.7 F 03/22/22 07:27 Pulse 63 03/22/22 07:27 Resp 15 03/22/22 07:27 BP 95/53 03/22/22 07:27 Pulse Ox 97 03/22/22 07:27 FiO2 Intake & Output 03/21/22 03/22/22 03/22/22 18:59 06:59 18:59 Intake Total 540 Balance 540 Weight 45.813 kg 45.813 kg Intake: Oral 540 Other: # Voids 1 - Exam Abdomen: Soft, nontender, nondistended - Labs CBC & Chem 7: 03/20/22 19:21 03/20/22 19:21 Assessment and Plan (1) Ileus, unspecified Narrative/Plan: Patient seems to be clinically improving. Agree with regular diet. Ambulate. May discharge tolerates. Current Visit: Yes Status: Acute Code(s): K56.7 - ILEUS, UNSPECIFIED SNOMED Code(s): 77954641
[2022-03-23] MEDS: HEPARIN SODIUM,PORCINE/PF 5,000 UNIT/0.5 ML SYRINGE SQ SCH ×2 (00:02→06:57)
[2022-03-23] MEDS: METOCLOPRAMIDE 5 MG/ML 2 ML VIAL IVP SCH ×2 (00:02→06:11)
[2022-03-23] MEDS: SODIUM CHLORIDE 0.9% 1,000 ML IV SCH (06:10)
[2022-03-23] MEDS: PANTOPRAZOLE 40 MG TABLET PO SCH (06:57)
[2022-03-23] MEDS: NICOTINE 21MG/24HR PATCH TRANSDERM SCH (06:58)
[2022-03-23 09:01] VITALS: BP 123/61; PULSE 53; RESP 14; TEMP 98.4
--- NOTE | 2022-03-23 11:13 | P.DS ---
Providers Date of admission: 03/20/22 23:07 Expected date of discharge: 03/23/22 Attending physician: Emir Sweeney MD Consults: 03/21/22 07:34 Consult Physician Routine Consulting Provider: Chilo Garcia Consult Reason/Comments: ileus Do you want consulting provider notified?: Yes Primary care physician: Stated None Hospital Course: 51-year-old female with no significant past medical history She comes in with 3 day history of no bowel movement in 2 day history of abdominal pain she describes pain mainly in the upper part of the abdomen colicky in nature can be as bad as 8 out of 10 in severity and nonradiating not related to food or activity. Initially she thought she is constipated which she is always constipated. But then pain was not improving she denies any associated nausea vomiting but she was worried this time due to the colicky nature of the pain. Denies any similar episodes in the past denies any GI bleeding denies any melena denies any weight changes. Denies any trauma to the abdomen. Denies any heavy alcohol consumption or illicit drugs. Denies any history of ulcers in the stomach. In the ED blood work was unremarkable goal blood ultrasound was negative CT of the abdomen suggested ileus. Patient was initially started on a clear liquid diet. She was hydrated with normal saline. She was given Zofran as needed for nausea and vomiting. Her pain was controlled with Toradol. General surgery was consulted and added Reglan scheduled. Nicotine patch was added for history of smoking. Patient was seen and examined on 03/22/2022. After a meal she reported feeling heaviness in her abdomen and discharge plans were held. Patient was seen and examined on 03/23/2022. She reported no abdominal pain during her encounter. No nausea and vomiting. She has been tolerating GI soft diet well. She reported passing gas but no bowel movement. She is advised to continue Protonix, Toradol and Reglan. She is advised to follow-up with her PCP within 1 week of discharge. Follow-up with surgery within 1 week of discharge. Advised to come back to the ED for worsening abdominal pain, intractable nausea and vomiting, inability to pass gas or have a bowel movement. Patient verbalized understanding of the plan. General: [non toxic], [no distress], [appears at stated age] Derm: [warm], [dry] Head: [atraumatic], [normocephalic], [symmetric] Eyes: [EOMI], [no lid lag], [anicteric sclera] Mouth: [no lip lesion], [mucus membranes moist] Cardiovascular: [S1S2 reg], [no murmur] Lungs: [CTA bilateral], [no rhonchi, no rales] , [no accessory muscle use] Abdominal: [soft], [nontender to palpation], [decreased bowel sounds], [no appreciable organomegaly] Ext: [no gross muscle atrophy], [no edema], [no contractures] Psych: [Alert], [oriented], [appropriate affect] #Abdominal pain #Ileus #Smoker #Seasonal ALLERGIES This complex discharge took about 35 minutes to complete. Pertinent Studies: CT abdomen pelvis Patient Condition at Discharge: Stable Plan - Discharge Summary Discharge Rx Participant: No New Discharge Prescriptions: New Pantoprazole [Protonix] 40 mg PO AC-BRKFST #30 tab Ketorolac [Toradol] 10 mg PO Q6HR #20 tab Metoclopramide HCl [Reglan] 10 mg PO DAILY #14 tablet Continue Mv-Min/Vit C/Glut/Lysine/Hc124 [Airborne Tablet Chewable] 4 tab PO DAILY Loratadine [Claritin] 10 mg PO DAILY PRN PRN Reason: Allergy Symptoms Discharge Medication List Mv-Min/Vit C/Glut/Lysine/Hc124 [Airborne Tablet Chewable] 4 tab PO DAILY 10/11/20 [History] Loratadine [Claritin] 10 mg PO DAILY PRN 03/20/22 [History] Ketorolac [Toradol] 10 mg PO Q6HR #20 tab 03/22/22 [Rx] Metoclopramide HCl [Reglan] 10 mg PO DAILY #14 tablet 03/22/22 [Rx] Pantoprazole [Protonix] 40 mg PO AC-BRKFST #30 tab 03/22/22 [Rx] Follow up Appointment(s)/Referral(s): Hernando Woodard NPC [REFERRING] - 1 Week Chilo Garcia MD [STAFF PHYSICIAN] - 1 Week Activity/Diet/Wound Care/Special Instructions: Diet: GI soft Follow-up with PCP within 1-2 days of discharge. Follow-up with surgery within 1 week of discharge. Take all medications as advised. Come back to the ED for worsening abdominal pain, intractable nausea and vomiting, inability to have a bowel movement or pass gas. Discharge Disposition: HOME SELF-CARE
== END 2022-03-23 12:43 | disposition home or self-care (01) | DRG 390 ==
LOC: EC 14:52 → 4SSUR 23:07
PROVIDERS: ADMIT Internal Medicine; ATTEND Internal Medicine
DX: K56.7 Ileus, unspecified (principal); F17.200 Nicotine dependence, unspecified, uncomplicated; J30.2 Other seasonal allergic rhinitis; Z85.41 Personal history of malignant neoplasm of cervix uteri; Z86.010 Personal history of colon polyps; Z79.899 Other long term (current) drug therapy; Z88.0 Allergy status to penicillin; Z88.2 Allergy status to sulfonamides; Z91.041 Radiographic dye allergy status
CPT/HCPCS: 36415; 74177; 76705; 80053; 81003; 82150; 83690; 84484; 85025; 93005; 96361; 96365; 96375; 96376; 99285

== ENCOUNTER 2022-04-08 10:08 | Day surgery (SDC) | payer BC ==
[2022-04-08 10:40] VITALS: TEMP 97.6
[2022-04-08] MEDS ORDERED: LIDOCAINE 1% (10MG/ML) FOR IV START INTRADERMA ONE (10:50)
[2022-04-08] MEDS ORDERED: PROPOFOL 10 MG/ML 20 ML VIAL IV ONE (11:16)
--- NOTE | 2022-04-08 11:22 | P.GSHP ---
History of Present Illness H&P Date: 04/08/22 Chief Complaint: Constipation, history of colon polyps This a 51-year-old female presents today for colonoscopy. Patient has a history of constipation. She also has previous history of colon polyps. She will stay for colonoscopy. Past Medical History Past Medical History: Cancer Additional Past Medical History / Comment(s): Cervical cancer with surgery, sinus allergies, recently in [facility] for possible ileus History of Any Multi-Drug Resistant Organisms: None Reported Past Surgical History: Breast Surgery, Tonsillectomy, Tubal Ligation Additional Past Surgical History / Comment(s): colonoscopies/tubular adenomas/ablation, bilateral breast implants, cold knife conization. Past Anesthesia/Blood Transfusion Reactions: No Reported Reaction Smoking Status: Current every day smoker - Past Family History Mother Family Medical History: Musculoskeletal Disorder Additional Family Medical History / Comment(s): Mother is . Father History Unknown: Yes Medications and Allergies Home Medications Medication Instructions Recorded Confirmed Type Loratadine [Claritin] 10 mg PO DAILY PRN 03/20/22 04/08/22 History Ketorolac [Toradol] 10 mg PO Q6HR PRN 04/05/22 04/08/22 History Allergies Allergy/AdvReac Type Severity Reaction Status Date / Time Iodinated Contrast Media Allergy Rash/Hives Verified 04/08/22 10:42 Penicillins Allergy Rash/Hives Verified 04/08/22 10:42 sulfamethoxazole Allergy Rash/Hives Verified 04/08/22 10:42 [From ] trimethoprim [From ] Allergy Rash/Hives Verified 04/08/22 10:42 Surgical - Exam Vital Signs Temp Pulse Resp BP Pulse Ox 97.6 F 69 16 128/60 98 04/08/22 10:38 04/08/22 10:38 04/08/22 10:38 04/08/22 10:38 04/08/22 10:38 - General well developed, well nourished, no distress - Eyes PERRL - ENT normal pinna - Neck no masses - Respiratory normal expansion - Cardiovascular Rhythm: regular - Abdomen Abdomen: soft, non tender Assessment and Plan Assessment: Constipation History: Pulse. We'll perform colonoscopy.
--- NOTE | 2022-04-08 11:40 | P.OP ---
Date of Procedure: 04/08/22 Preoperative Diagnosis: History of colon polyps Constipation Postoperative Diagnosis: Sigmoid colon polyp Hemorrhoids Diverticulosis Procedure(s) Performed: Colonoscopy Anesthesia: MAC Surgeon: Chilo Garcia Pathology: other (Sigmoid colon polyp) Condition: stable Disposition: PACU Description of Procedure: The patient's placed on the endoscopy table in the lateral position. She received IV sedation. Digital rectal exam was performed. This revealed no ebonized. The flexible colonoscope was then placed patient anus and passed throughout the entire colon. The ileocecal valve was visualized. The cecum, ascending and transverse colon appeared normal. In the descending and; was extensive diverticular disease. In the; polyp was seen this removed with the cold forcep. Scope was then brought back the rectum and this appeared normal. Scope was withdrawn from the patient.
[2022-04-08 11:45] VITALS: RESP 14
[2022-04-08] MEDS ORDERED: KETOROLAC 15 MG/ML 1 ML VIAL ONE (12:38)
[2022-04-08 12:45] VITALS: BP 136/78; PULSE 59
== END 2022-04-08 13:10 | disposition home or self-care (01) ==
LOC: ORWHC2ENDO 10:08
PROVIDERS: ATTEND Surgery
DX: K63.5 Polyp of colon (principal); K59.00 Constipation, unspecified; K64.9 Unspecified hemorrhoids; J30.9 Allergic rhinitis, unspecified; F17.210 Nicotine dependence, cigarettes, uncomplicated; Z86.010 Personal history of colon polyps; Z85.41 Personal history of malignant neoplasm of cervix uteri; Z98.890 Other specified postprocedural states; Z90.89 Acquired absence of other organs; Z98.51 Tubal ligation status; Z98.82 Breast implant status; Z82.69 Family history of other diseases of the musculoskeletal system and connective tissue; Z88.2 Allergy status to sulfonamides; Z88.8 Allergy status to other drugs, medicaments and biological substances; Z88.0 Allergy status to penicillin
CPT/HCPCS: 81025; 88305; 45380; J1885; J2704

== ENCOUNTER → 2024-06-11 | Outpatient (CLI) | payer BC ==
--- NOTE | 2024-06-11 12:47 | CTL ---
EXAMINATION TYPE: CT Low Dose Lung DATE OF EXAM ORDERED: 06/11/2024 COMPARISON: None CLINICAL INDICATION: Female, 54 years old with history of Z12.2 ENCNTR SCREEN FOR MALIGNANT NEOPLASM OF RESP; PHH, personal h/o tobacco use x40 years not current smoker, Lung cancer screening, History o f Smoking/tobacco use. TECHNIQUE: Low dose computed tomography scan was performed through the chest at 1 mm thick sections a nd reconstructed images in multiple planes at 1 mm and [address] DLP: 45.[address] CTDI: 1.20 mGy Automated exposure control for dose reduction was used. CT DIAGNOSTIC QUALITY: Satisfactory FINDINGS: EXAMINATION TYPE: CT Low Dose Lung DATE OF EXAM ORDERED: 06/11/2024 HISTORY: Lung cancer screening CT DLP: 45.[address] CTDI: 1.20 mGy Automated exposure control for dose reduction was used. Comparison: None TECHNIQUE: Low dose computed tomography scan was performed through the chest at 1 mm thick sections a nd reconstructed images in multiple planes at 1 mm and [address] DIAGNOSTIC QUALITY: Satisfactory FINDINGS: There is a 2 to 3 mm right upper lobe pulmonary nodule. There 3 sub-3 mm left pulmonary nodules. Ther e is no suspicious lung mass or nodule. The lungs are clear and there is no abnormal airspace consolidation or interstitial density. There is no mediastinal, hilar or axillary adenopathy. There is no pleural effusion, pleural thickening or pneumothorax. No focal osseous lesions are seen. Limited scans the upper abdomen reveals no gross abnormality. Note is made of bilateral breast implan ts IMPRESSION: 1. Lung rads Category 2 benign. Continue routine screening at yearly intervals. 2. No acute cardiopulmonary disease. [facility], , 06/11/2024 12:44 PM
== END | disposition home or self-care (01) ==
LOC: RADCTMAIN 11:10
PROVIDERS: ATTEND Family Medicine
DX: Z12.2 Encounter for screening for malignant neoplasm of respiratory organs (principal); F17.210 Nicotine dependence, cigarettes, uncomplicated; Z71.6 Tobacco abuse counseling
CPT/HCPCS: 71271

== ENCOUNTER 2024-07-02 12:45 | Day surgery (SDC) | payer BC ==
[2024-06-30 10:52] VITALS: BMI 19.7
[2024-07-02 13:37] VITALS: RESP 16; TEMP 97.8
[2024-07-02] MEDS: IV FLUID CONTINUATION 1,000 ML IV ONE (13:39)
[2024-07-02] MEDS: LACTATED RINGERS 1,000 ML IV SCH (13:47)
[2024-07-02] MEDS ORDERED: PROPOFOL 10 MG/ML 20 ML VIAL IV ONE (15:28)
--- NOTE | 2024-07-02 15:42 | P.PCN ---
Date of Procedure: 07/02/24 Procedure(s) Performed: BRIEF HISTORY: Patient is a 54-year-old pleasant white female scheduled for an elective colonoscopy as a part of follow-up of large ileocecal valve polyp noted on colonoscopy in July 2020. She had repeat colonoscopy in October 2020 and was noted to have a 2 cm flat residual polyp that was removed by snare polypectomy followed by argon plasma coagulation. She is scheduled for follow- up colonoscopy today. PROCEDURE PERFORMED: Colonoscopy snare polypectomy. PREOPERATIVE DIAGNOSIS: Follow-up polyp nodular cecal valve polyp. IV sedation per Anesthesia. PROCEDURE: After informed consent was obtained, the patient, was brought into the endoscopy unit. IV sedation was administered by Anesthesia under continuous monitoring. Digital rectal examination was normal. Initially the Olympus CF-160 flexible video colonoscope was then inserted in the rectum, gradually advanced i nto the cecum without any difficulty. Careful examination was performed as the scope was gradually being withdrawn. Ileocecal valve and the appendiceal orifice were visualized and appeared normal. Prep was excellent. Ileocecal valve there was a 7 mm linear residual polyp identified which was removed completely by snare polypectomy. Rest of the mucosa of the cecum, ascending colon, transverse colon, descending colon, sigmoid colon, and rectum appeared normal. Scattered r sigmoid diverticulosis. Retroflexion was performed in the rectum and small internal hemorrhoids were seen. The patient tolerated the procedure well. IMPRESSION: 7 mm linear residual ileocecal valve polyp status post cold snare polypectomy and complete polypectomy accomplished Scattered small diverticulosis small internal hemorrhoids RECOMMENDATIONS: Findings of this examination were discussed with the patient as well as her family.. She was advised to follow with the biopsy results and if the biopsy is adenoma she can have repeat colonoscopy in 3 years
[2024-07-02 16:14] VITALS: BP 167/79; PULSE 69
== END 2024-07-02 16:44 | disposition home or self-care (01) ==
LOC: ORWHC2ENDO 12:45
PROVIDERS: ATTEND Internal Medicine Gastroenterology
DX: D12.0 Benign neoplasm of cecum (principal); K64.8 Other hemorrhoids; K57.30 Diverticulosis of large intestine without perforation or abscess without bleeding; C53.9 Malignant neoplasm of cervix uteri, unspecified; Z87.891 Personal history of nicotine dependence; Z88.0 Allergy status to penicillin; Z88.2 Allergy status to sulfonamides; Z91.041 Radiographic dye allergy status; Z90.01 Acquired absence of eye
CPT/HCPCS: 88305; 45385; J2704

== ENCOUNTER 2024-09-02 17:02 | Emergency (ER) | payer BC ==
[2024-09-02 18:28] LABS: Basophils % (A) 1 %; Eosinophils # (A) 0.3 k/uL (0-0.7); Eosinophils % (A) 5 %; HCT 39.3 % (34.0-46.0); HGB 12.9 gm/dL (11.4-16.0); Lymphocytes # (A) 0.4 k/uL (1.0-4.8); Lymphocytes % (A) 9 %; MCH 29.9 pg (25.0-35.0); MCHC 32.9 g/dL (31.0-37.0); MCV 90.9 fL (80.0-100.0); Mean Platelet Volume 7.5; Monocytes # (A) 0.4 k/uL (0-1.0); Monocytes % (A) 8 %; Neutrophils # (A) 3.8 k/uL (1.3-7.7); Neutrophils % (A) 77 %; Platelet Count 273 k/uL (150-450); RBC 4.32 m/uL (3.80-5.40); RDW 12.8 % (11.5-15.5)
[2024-09-02] MEDS: SODIUM CHLORIDE 0.9% 2,000 ML IV STA (18:33)
[2024-09-02] MEDS: PANTOPRAZOLE 40 MG/10 ML VIAL IVP STA (18:34)
[2024-09-02] MEDS: KETOROLAC 15 MG/ML 1 ML VIAL IVP STA (18:35)
[2024-09-02] MEDS: ONDANSETRON 4 MG/2 ML VIAL IVP STA (18:37)
[2024-09-02 18:41] LABS: ALT 28 U/L (4-34); African American GFR (CKD) >90 (>60 ml/min/1.73 sqM); Albumin 4.6 g/dL (3.5-5.0); Amylase 41 U/L (30-110); Anion Gap 12 mmol/L; Blood Urea Nitrogen 25 mg/dL (7-17); Calcium 10.7 mg/dL (8.4-10.2); Carbon Dioxide 25 mmol/L (22-30); Chloride 103 mmol/L (98-107); Glucose 95 mg/dL (74-99); Lipase 28 U/L (23-300); Non-African American GFR(CKD) >90 (>60 ml/min/1.73 sqM); Sodium 140 mmol/L (137-145); Total Bilirubin 0.9 mg/dL (0.2-1.3); Total Protein 7.4 g/dL (6.3-8.2)
[2024-09-02 18:42] LABS: AST 31 U/L (14-36)
[2024-09-02 18:43] LABS: Alkaline Phosphatase 92 U/L (38-126)
[2024-09-02 18:49] LABS: INR 0.9 (<1.2); Partial Thromboplastin Time 22.2 sec (22.0-30.0); Prothrombin Time 10.2 sec (10.0-12.5)
[2024-09-02 19:11] LABS: Appearance,Urine Clear (Clear); Bilirubin,Urine Negative (Negative); Blood,Urine Negative (Negative); Color,Urine Yellow; Glucose,Urine (UA) Negative (Negative); Ketones,Urine Trace (Negative); Leukocyte Esterase,Urine Small (Negative); Mucus,Urine Few /hpf; Nitrite,Urine Negative (Negative); PH, Urine 6.5 (5.0-8.0); Protein,Urine Trace (Negative); RBC,Urine 2 /hpf (0-5); Specific Gravity,Urine 1.031 (1.001-1.035); Squamous Epithelial Cell,Urine 1 /hpf (0-4); Urobilinogen,Urine <2.0 mg/dL (<2.0); WBC,Urine 14 /hpf (0-5)
[2024-09-02 19:16] LABS: Influenza A Not Detected (Not Detectd); Influenza B Not Detected (Not Detectd); RSV Not Detected (Not Detectd)
--- NOTE | 2024-09-02 19:43 | CT ---
EXAMINATION TYPE: CT abdomen pelvis wo con DATE OF EXAM: 09/02/2024 7:31 PM COMPARISON: None. CLINICAL INDICATION: Female, 54 years old with history of abd pain, n/v/d, Pt to ED for abdominal violet n, n/v/d that began Friday TECHNIQUE: Axial images were obtained from above the diaphragm to the pubic rami in the axial plane a t 5 mm thick sections. Reconstructed images are reviewed on the computer in the coronal plane. CONTRAST: mL of . Study performed without Oral Contrast DLP: 270.6 mGycm, Automated exposure control for dose reduction was used. FINDINGS: Limited CT sections are obtained the lung bases. There is a density along the right mediastinal hear t border measuring 1.9 x 2.7 cm. Additional workup of this finding is recommended. Lung bases are oth erwise clear.. CT ABDOMEN: Liver: Normal Spleen: Normal Pancreas: Normal Adrenal glands: The adrenal glands are normal. Gallbladder: Normal Kidneys: No masses are evident. No hydronephrosis is present. No cysts are present. No renal stone s are evident. Aorta: Minimal Vascular calcification is within the aorta. Inferior vena cava: Normal. CT PELVIS: Loops of bowel within the abdomen and pelvis are normal. This study is without oral contrast limi ting bowel evaluation. A few scattered diverticuli may be present. Appendix: Not identified. No dilated tubular structure or inflammatory change is evident. Urinary bladder: Normal. Genitourinary structures: Uterus and adnexa are unremarkable Osseous structures: No suspicious lytic or sclerotic lesions. IMPRESSION: 1. Right anterior medial lung base mass. Additional workup is recommended. Neoplasm is not excluded. 2. Minimal scattered diverticuli without acute diverticulitis. No suspicious bowel changes on the non oral contrast study [facility], Workstation: [facility], 09/02/2024 7:41 PM
--- NOTE | 2024-09-02 19:54 | XR ---
EXAMINATION TYPE: XR chest 2V DATE OF EXAM: 09/02/2024 7:45 PM COMPARISON: 05/16/2014 CLINICAL INDICATION: Female, 54 years old with history of abdominal pain, TECHNIQUE: XR chest 2V view(s) obtained. FINDINGS: The heart size is normal. The pulmonary vasculature is normal. The lungs are clear. No free air is under the diaphragm. No suspicious air-fluid levels are evident within the field of view IMPRESSION: 1. No acute pulmonary process. [facility], Workstation: [facility], 09/02/2024 7:52 PM
[2024-09-02 20:16] VITALS: TEMP 98.6
--- NOTE | 2024-09-02 21:15 | ED ---
General Adult HPI - General Chief complaint: Abdominal Pain Stated complaint: nvd Time Seen by Provider: 09/02/24 17:45 Source: patient, RN notes reviewed, old records reviewed Mode of arrival: ambulatory Limitations: no limitations - History of Present Illness Initial comments: patient is a 54-year-old female presents emergency department complaining of nausea, vomiting, diarrhea, cough, congestion. Has been ongoing for numerous days. Has been on prednisone from urgent care with no significant improvement. Presents for further evaluation. Denies any significant abdominal pain, chest pain. Does have a history of pulmonary nodules. Also has a history of diverticulosis. Denies any blood in her stool. Denies any blood in her emesis. No other acute complaints at this time. Presents for further evaluation at this time. Recent colonoscopy revealed polyps but no other obvious acute findings. - Related Data Home Medications Medication Instructions Recorded Confirmed Multivit-Min/Iron Fum/Folic AC 1 each PO DAILY 06/30/24 07/02/24 [One-A-Day Women's Complete Tab] Nicotine 7Mg/24Hr Patch [Habitrol] 1 patch TOPICAL DAILY 06/30/24 07/02/24 Previous Rx's Medication Instructions Recorded Albuterol Inhaler [Ventolin Hfa 1 - 2 puff INHALATION Q6H PRN #1 09/02/24 Inhaler] each Azithromycin [Zithromax] 250 mg PO DAILY 4 Days #4 tab 09/02/24 Allergies Allergy/AdvReac Type Severity Reaction Status Date / Time Iodinated Contrast Media Allergy Rash/Hives Verified 09/02/24 17:16 Penicillins Allergy Rash/Hives Verified 09/02/24 17:16 sulfamethoxazole Allergy Rash/Hives Verified 09/02/24 17:16 [From ] trimethoprim [From ] Allergy Rash/Hives Verified 09/02/24 17:16 Review of Systems ROS Statement: Those systems with pertinent positive or pertinent negative responses have been documented in the HPI. Review of Systems: CONST: Denies fever EYES: Denies blurry vision ENT: Denies nasal congestion C/V: Denies Chest pain RESP: Denies shortness of breath GI: Denies any significant abdominal pain. : Denies dysuria SKIN: Denies rash. MSK: Denies joint pain. NEURO: Denies headache ROS Other: All systems not noted in ROS Statement are negative. Past Medical History Past Medical History: Cancer Additional Past Medical History / Comment(s): Cervical cancer with surgery, sinus allergies, History of Any Multi-Drug Resistant Organisms: None Reported Past Surgical History: Breast Surgery, Tonsillectomy, Tubal Ligation Additional Past Surgical History / Comment(s): colonoscopies/tubular adenomas/ablation, bilateral breast implants, cold knife conization. Past Anesthesia/Blood Transfusion Reactions: No Reported Reaction Past Psychological History: No Psychological Hx Reported Smoking Status: Former smoker Past Alcohol Use History: Occasional Past Drug Use History: None Reported - Past Family History Mother Family Medical History: Musculoskeletal Disorder Additional Family Medical History / Comment(s): Mother is . Father History Unknown: Yes General Exam - General Exam Comments Initial Comments: General: Appears in no acute distress. HEAD: Normal with no signs of head trauma. EYES: PERRLA, EOMI, conjunctiva normal, no discharge. ENT: Hearing grossly intact, normal oropharynx. Dry mucous membranes. RESPIRATORY: Clear breath sounds bilaterally. No wheezes, rales, or rhonchi. No hypoxia. C/V: Regular rate and rhythm. S1 and S2 auscultated, no edema, peripheral pulses 2+ and intact throughout ABD: Abdomen soft, nontender. Somewhat generalized discomfort on palpation. No guarding or rebound tenderness. No peritoneal signs. EXT: Normal range of motion, no obvious deformity SKIN: No rashes or lesions observed on exposed skin. NEURO: Alert and oriented x 4. Limitations: no limitations Course Vital Signs 09/02/24 09/02/24 17:17 20:15 Temperature 98.3 F 98.6 F Pulse Rate 92 Respiratory 20 17 Rate Blood Pressure 127/65 111/63 O2 Sat by Pulse 95 Oximetry Medical Decision Making - Medical Decision Making Was pt. sent in by a medical professional or institution (, PA, FREEZER ASSISTANT, urgent care, hospital, or care home...) When possible be specific @ -No Did you speak to anyone other than the patient for history (EMS, parent, family, police, friend...)? What history was obtained from this source @ -No Did you review nursing and triage notes (agree or disagree)? Why? @ -I reviewed and agree with nursing and triage notes Were old charts reviewed (outside hosp., previous admission, EMS record, old EKG, old radiological studies, urgent care reports/EKG's, care home records)? Report findings @ -Reviewed CT of the chest from June 2024 which does show pulmonary nodules. Differential Diagnosis (chest pain, altered mental status, abdominal pain women, abdominal pain men, vaginal bleeding, weakness, fever, dyspnea, syncope, headache, dizziness, GI bleed, back pain, seizure, CVA, palpatations, mental health, musculoskeletal)? @ -Differential Abdominal Pain Women: Appendicitis, Cholecystitis, diverticulosis, ischemic bowel, pancreatitis, hepatitis, UTI, gastroenteritis, AAA, incarcerated hernia, bowel obstruction, constipation, inflammatory bowel, hepatitis, peptic ulcer disease, splenic infa rction, perforated viscus, vulvitis, ovarian torsion, PID, kidney stone, placenta abruption, this is not meant to be an all-inclusive list EKG interpreted by me (3pts min.). @ -As above X-rays interpreted by me (1pt min.). @ -Chest x-ray unremarkable. CT interpreted by me (1pt min.). @ -CT reveals no obvious acute intra-abdominal process. Patient does have a pulmonary mass in the right midlung. This was not seen on CT from June 2024. U/S interpreted by me (1pt. min.). @ -None done What testing was considered but not performed or refused? (CT, X-rays, U/S, labs)? Why? @ -None What meds were considered but not given or refused? Why? @ -None Did you discuss the management of the patient with other professionals (professionals i.e. , PA, FREEZER ASSISTANT, lab, RT, psych nurse, social and political studies professor, nursing officer, teacher, forest fire management officer, correctional casework specialist)? Give summary @ -No Was smoking cessation discussed for >3mins.? @ -No Was critical care preformed (if so, how long)? @ -No Were there social determinants of health that impacted care today? How? (Homelessness, low income, unemployed, alcoholism, drug addiction, transportation, low edu. Level, literacy, decrease access to med. care, long-term, rehab)? @ -No Was there de-escalation of care discussed even if they declined (Discuss DNR or withdrawal of care, Hospice)? DNR status @ -No What co-morbidities impacted this encounter? (DM, HTN, Smoking, COPD, CAD, Cancer, CVA, ARF, Chemo, Hep., AIDS, mental health diagnosis, sleep apnea, morbid obesity)? @ -Prior tobacco history, history of pulmonary nodules, history of diverticulosis. Was patient admitted / discharged? Hospital course, mention meds given and route, prescriptions, significant lab abnormalities, going to OR and other pertinent info. @ -Based on the patient's presentation and physical exam, presents emergency department complaining of viral-like symptoms. We will obtain generalized workup. She was in agreement this plan. CT of also be obtained without contrast that she does have an allergy to contrast. Vitals are within acceptable limits. She is given 2 L fluid bolus as well as IV Zofran, Protonix, Toradol. Patient was in agreement this plan. EKG shows no signs of acute ischemia. Imaging unremarkable for any obvious acute process but patient does have a right midlung anterior mass that does require further workup as we cannot rule out malignancy. Laboratory studies are remarkable for no obvious acute finding including lactic acid within normal limits. On reevaluation, patient is feeling improved. We did discuss her workup and results. Discussed at length the findings on CT of the lung mass. She expresses understanding was given a disc. Instructed to follow-up with pulmonology or PCP for further monitoring. She will be started on azithromycin for tracheobronchitis as well as given ODT Zofran as well as a prescription for an albuterol inhaler. She was in agreement this plan. Strict return precautions discussed. I instructed the patient to follow up with their PCP in the next 1-3 days. I explained that the patient should return to the emergency department if they experience any worsening symptoms. Strict return precautions were discussed with the patient. The patient expressed understanding of these instructions. I answered all questions that the patient had. The patient was discharged home in good condition with their prescriptions and follow up information. Undiagnosed new problem with uncertain prognosis? @ -No Drug Therapy requiring intensive monitoring for toxicity (Heparin, Nitro, Insulin, Cardizem)? @ -No Were any procedures done? @ -No Diagnosis/symptom? @ -Tracheobronchitis, nausea, vomiting, diarrhea, lung mass Acute, or Chronic, or Acute on Chronic? @ -Acute Uncomplicated (without systemic symptoms) or Complicated (systemic symptoms)? @ -Uncomplicated Side effects of treatment? @ -No Exacerbation, Progression, or Severe Exacerbation? @ -No Poses a threat to life or bodily function? How? (Chest pain, [place], [place], pneumonia, PE, COPD, DKA, ARF, appy, cholecystitis, CVA, Diverticulitis, Homicidal, Suicidal, threat to staff... and all critical care pts) @ -Unlikely at this time - Lab Data Result diagrams: 09/02/24 18:18 09/02/24 18:18 Lab Results 09/02/24 09/02/24 09/02/24 Range/Units 18:18 18:18 18:18 WBC 5.0 (3.8-10.6) k/uL RBC 4.32 (3.80-5.40) m/uL Hgb 12.9 (11.4-16.0) gm/dL Hct 39.3 (34.0-46.0) % MCV 90.9 (80.0-100.0) fL MCH 29.9 (25.0-35.0) pg MCHC 32.9 (31.0-37.0) g/dL RDW 12.8 (11.5-15.5) % Plt Count 273 (150-450) k/uL MPV 7.5 Neutrophils % 77 % Lymphocytes % 9 % Monocytes % 8 % Eosinophils % 5 % Basophils % 1 % Neutrophils # 3.8 (1.3-7.7) k/uL Lymphocytes # 0.4 L (1.0-4.8) k/uL Monocytes # 0.4 (0-1.0) k/uL Eosinophils # 0.3 (0-0.7) k/uL Basophils # 0.0 (0-0.2) k/uL PT 10.2 (10.0-12.5) sec INR 0.9 (<1.2) APTT 22.2 (22.0-30.0) sec Sodium 140 (137-145) mmol/L Potassium 4.0 (3.5-5.1) mmol/L Chloride 103 (98-107) mmol/L Carbon Dioxide 25 (22-30) mmol/L Anion Gap 12 mmol/L BUN 25 H (7-17) mg/dL Creatinine 0.59 (0.52-1.04) mg/dL Est GFR (CKD-EPI)AfAm >90 (>60 ml/min/1.73 sqM) Est GFR (CKD-EPI)NonAf >90 (>60 ml/min/1.73 sqM) Glucose 95 (74-99) mg/dL Plasma Lactic Acid Mick (0.7-2.0) mmol/L Calcium 10.7 H (8.4-10.2) mg/dL Total Bilirubin 0.9 (0.2-1.3) mg/dL AST 31 (14-36) U/L ALT 28 (4-34) U/L Alkaline Phosphatase 92 (38-126) U/L Total Protein 7.4 (6.3-8.2) g/dL Albumin 4.6 (3.5-5.0) g/dL Amylase 41 (30-110) U/L Lipase 28 (23-300) U/L Urine Color Urine Appearance (Clear) Urine pH (5.0-8.0) Ur Specific [place] (1.001-1.035) Urine Protein (Negative) Urine Glucose (UA) (Negative) Urine Ketones (Negative) Urine Blood (Negative) Urine Nitrite (Negative) Urine Bilirubin (Negative) Urine Urobilinogen (<2.0) mg/dL Ur Leukocyte Esterase (Negative) Urine RBC (0-5) /hpf Urine WBC (0-5) /hpf Ur Squamous Epith Cells (0-4) /hpf Urine Mucus (None) /hpf Influenza Type A (PCR) (Not Detectd) Influenza Type B (PCR) (Not Detectd) RSV (PCR) (Not Detectd) SARS-CoV-2 (PCR) (Not Detectd) 09/02/24 09/02/24 09/02/24 Range/Units 18:18 18:18 18:39 WBC (3.8-10.6) k/uL RBC (3.80-5.40) m/uL Hgb (11.4-16.0) gm/dL Hct (34.0-46.0) % MCV (80.0-100.0) fL MCH (25.0-35.0) pg MCHC (31.0-37.0) g/dL RDW (11.5-15.5) % Plt Count (150-450) k/uL MPV Neutrophils % % Lymphocytes % % Monocytes % % Eosinophils % % Basophils % % Neutrophils # (1.3-7.7) k/uL Lymphocytes # (1.0-4.8) k/uL Monocytes # (0-1.0) k/uL Eosinophils # (0-0.7) k/uL Basophils # (0-0.2) k/uL PT (10.0-12.5) sec INR (<1.2) APTT (22.0-30.0) sec Sodium (137-145) mmol/L Potassium (3.5-5.1) mmol/L Chloride (98-107) mmol/L Carbon Dioxide (22-30) mmol/L Anion Gap mmol/L BUN (7-17) mg/dL Creatinine (0.52-1.04) mg/dL Est GFR (CKD-EPI)AfAm (>60 ml/min/1.73 sqM) Est GFR (CKD-EPI)NonAf (>60 ml/min/1.73 sqM) Glucose (74-99) mg/dL Plasma Lactic Acid Mick 1.3 (0.7-2.0) mmol/L Calcium (8.4-10.2) mg/dL Total Bilirubin (0.2-1.3) mg/dL AST (14-36) U/L ALT (4-34) U/L Alkaline Phosphatase (38-126) U/L Total Protein (6.3-8.2) g/dL Albumin (3.5-5.0) g/dL Amylase (30-110) U/L Lipase (23-300) U/L Urine Color Yellow Urine Appearance Clear (Clear) Urine pH 6.5 (5.0-8.0) Ur Specific [place] 1.031 (1.001-1.035) Urine Protein Trace H (Negative) Urine Glucose (UA) Negative (Negative) Urine Ketones Trace H (Negative) Urine Blood Negative (Negative) Urine Nitrite Negative (Negative) Urine Bilirubin Negative (Negative) Urine Urobilinogen <2.0 (<2.0) mg/dL Ur Leukocyte Esterase Small H (Negative) Urine RBC 2 (0-5) /hpf Urine WBC 14 H (0-5) /hpf Ur Squamous Epith Cells 1 (0-4) /hpf Urine Mucus Few H (None) /hpf Influenza Type A (PCR) Not Detected (Not Detectd) Influenza Type B (PCR) Not Detected (Not Detectd) RSV (PCR) Not Detected (Not Detectd) SARS-CoV-2 (PCR) Not Detected (Not Detectd) - EKG Data -: EKG Interpreted by Me EKG Comments: 12-lead Electrocardiogram Interpretation Note EKG was reviewed and interpreted by myself. 12-lead ECG performed at 1952 is interpreted by me as revealing normal sinus rhythm at a rate of 62 beats per minute. [place] is normal. ND interval is 132 ms, QRS duration is 85 ms, QTc is 384 ms.. There were no ST or T wave abnormalities to suggest myocardial ischemia or injury. R wave progression across the precordium was satisfactory. By my interpretation this EKG is non-diagnostic for acute ischemia. Disposition Clinical Impression: Nausea and vomiting, Tracheobronchitis, Diarrhea, Lung mass Disposition: HOME SELF-CARE Condition: Good Instructions (If sedation given, give patient instructions): Acute Bronchitis (ED) Additional Instructions: You likely have a degree of tracheobronchitis as well as viral syndrome with nausea and vomiting and diarrhea. Workup was unremarkable except for the lung mass seen in the right lung. Does not appear to have been seen on prior CT imaging from last year. You to follow-up with pulmonology or PCP for further imaging. Use albuterol inhaler as needed for the coughing as well as the antibiotic. Use Zofran as needed for nausea. Stay hydrated and return to the ER if any worsening symptoms. Follow-up with your PCP in the next 1 to 3 days. Prescriptions: Albuterol Inhaler [Ventolin Hfa Inhaler] 1 - 2 puff INHALATION Q6H PRN #1 each PRN Reason: Dyspnea Azithromycin [Zithromax] 250 mg PO DAILY 4 Days #4 tab Is patient prescribed a controlled substance at d/c from ED?: No Referrals: None,Stated [Primary Care Provider] - 1-2 days Hai Tsang DO [Doctor of Osteopathic Medicine] - 1-2 days Time of Disposition: 21:15
[2024-09-02] MEDS: ONDANSETRON 4 MG ODT STARTER PACK 2 TAB BTL PO STA (21:24)
[2024-09-02] MEDS: AZITHROMYCIN 500 MG TAB PO STA (21:24)
[2024-09-02 21:38] VITALS: BP 123/71; PULSE 67; RESP 18
== END 2024-09-02 21:38 | disposition home or self-care (01) ==
LOC: EC 17:02
DX: J40 Bronchitis, not specified as acute or chronic (principal); R11.2 Nausea with vomiting, unspecified; R19.7 Diarrhea, unspecified; R91.8 Other nonspecific abnormal finding of lung field; R10.84 Generalized abdominal pain; Z87.891 Personal history of nicotine dependence; Z88.1 Allergy status to other antibiotic agents; Z88.0 Allergy status to penicillin; Z88.2 Allergy status to sulfonamides; Z91.041 Radiographic dye allergy status; Z87.19 Personal history of other diseases of the digestive system
CPT/HCPCS: 36415; 93005; 80053; 82150; 83605; 83690; 85025; 85610; 85730; 81001; 87636; 71046; 74176; 99285; 96374; 96375 ×2; 96361 ×3; J2405; J1885; S0119; J2470

== ENCOUNTER → 2024-09-06 | Outpatient (CLI) | payer BC ==
[2024-09-06 19:26] LABS: Blood Urea Nitrogen 8.4 mg/dL (9.0-27.0); Calcium 9.7 mg/dL (8.7-10.3); Carbon Dioxide 25.8 mmol/L (21.6-31.8); Chloride 106 mmol/L (96-109); Glucose 96 mg/dL (70-110); Potassium 4.3 mmol/L (3.5-5.5); Sodium 143 mmol/L (135-145)
== END | disposition home or self-care (01) ==
LOC: LABWHC1 12:12
PROVIDERS: ATTEND Family Medicine
DX: E83.52 Hypercalcemia (principal)
CPT/HCPCS: 36415; 80048; 82306; 83970

== ENCOUNTER → 2024-09-13 | Outpatient (CLI) | payer BC ==
--- NOTE | 2024-09-13 12:39 | CT ---
EXAMINATION TYPE: CT chest wo con DATE OF EXAM: 09/13/2024 11:28 AM COMPARISON: 06/11/2024. CLINICAL INDICATION: Female, 54 years old with history of R91.8 mass R lung; PHH, Rt lung Mass TECHNIQUE: Multiple axial images were obtained through the chest. Sagittal and coronal reformats were created for review. MIP was performed on a separate workstation. Contrast used: mL of (None if empty) Oral contrast used: (None if empty) CT DLP: 128.5 mGycm, Automated exposure control for dose reduction was used. FINDINGS: LUNGS/ PLEURA: No focal consolidation, pneumothorax. Atelectasis changes in the medial aspect of the right lower lung. There is trace bilateral pleural effusions. AIRWAY: Patent and unremarkable. HEART: Size within normal limits MEDIASTINUM: No gross evidence of adenopathy. VASCULATURE: No aortic aneurysm. MUSCULOSKELETAL: Mild disc degeneration changes are present throughout the thoracolumbar spine second catherine to osteophyte formation and facet joint arthropathy. SOFT TISSUES/LYMPH NODES: Bilateral breast implants. LOWER NECK: No significant findings. UPPER ABDOMEN: No significant findings. IMPRESSION: 1. Consolidation changes of the right medial lung felt to be on basis of atelectasis increased in si ze from 06/11/2024. Attention on follow-up imaging. No new or enlarging pulmonary nodule stability vis ualized otherwise. 2. Trace bilateral pleural effusions. [facility], , 09/13/2024 12:37 PM
== END | disposition home or self-care (01) ==
LOC: RADCTMAIN 11:13
PROVIDERS: ATTEND Family Medicine
DX: J90 Pleural effusion, not elsewhere classified (principal); R91.8 Other nonspecific abnormal finding of lung field; F17.211 Nicotine dependence, cigarettes, in remission; F17.210 Nicotine dependence, cigarettes, uncomplicated; J98.11 Atelectasis; Z98.82 Breast implant status
CPT/HCPCS: 71250

== ENCOUNTER → 2024-10-22 | Outpatient (CLI) | payer BC ==
--- NOTE | 2024-10-23 15:50 | PE ---
EXAMINATION TYPE: PET CT fusion skull to thigh DATE OF EXAM: 10/22/2024 CLINICAL INDICATION:Female, 54 years old with history of R91.8 lung mass; TECHNIQUE: Following the intravenous administration of 11.45 mCi of F-18 FDG, whole body images are performed from the skull base to the midthigh. Images are reviewed on the computer in the coronal, axial, and sagittal planes. Reconstructed rotating images are created on independent workstation and reviewed on the computer. A non-contrast CT is performed in conjunction with the PET scan. Glucose level 86 mg/dL CT DLP: 168.5 to mGycm, Automated exposure control for dose reduction was used. COMPARISON: CT 09/13/2024, 09/02/2024, 06/11/2024, 03/20/2022, PET/CT None, MRI: None FINDINGS: Mediastinal SUV mean is 2.0. Hepatic parenchyma SUV mean is 2.3. SKULL BASE AND NECK: No suspicious radiotracer activity. CHEST, MEDIASTINUM, AND HILAR REGION: Similar masslike consolidation within the medial aspect of the right middle lobe measuring 2.2 x 1.3 cm. No suspicious FDG activity with a maximum SUV of 1.7 which is at background levels. ABDOMEN AND PELVIS: No suspicious radiotracer activity. MUSCULOSKELETAL STRUCTURES: No suspicious radiotracer activity. OTHER CT: Bilateral breast prosthesis. Minimal coronary artery calcification calcifications. IMPRESSION: Similar masslike consolidation within the medial aspect of the right middle lobe. Favored to represen t atelectasis. No suspicious FDG activity. Follow-up CT chest in 6 months is recommended. [facility], , 10/23/2024 3:48 PM
== END | disposition home or self-care (01) ==
LOC: RADPETMAIN 07:53
PROVIDERS: ATTEND Internal Medicine
DX: R91.8 Other nonspecific abnormal finding of lung field (principal)
CPT/HCPCS: 78815; A9552